=== PATIENT | female | born 1945 | race Caucasian/White ===

== ENCOUNTER 2018-09-14 11:59 | Emergency (ER) | payer OTHER ==
[2018-09-14] MEDS ORDERED: IOHEXOL 240 MG/ML 50ML VIAL. ONE (12:27)
[2018-09-14] MEDS ORDERED: ONDANSETRON PF 4 MG/2 ML VIAL. IV ONE (12:30)
[2018-09-14] MEDS ORDERED: IV NORMAL SALINE 500ML 500 ML IV ONE (12:30)
[2018-09-14] MEDS ORDERED: IOHEXOL 300 MG/ML 75 ML VIAL. IV ONE (12:30)
[2018-09-14 12:36] LABS: BASO # 0.1 x10^3/uL (0.0-0.2); BASO % 1 % (0-3); EOS # 0.1 x10^3/uL (0.0-0.7); EOS % 1 % (0-3); HEMATOCRIT 42.6 % (36.0-47.0); HEMOGLOBIN 14.6 g/dL (12.0-15.5); LYMPH # 2.6 x10^3/uL (1.0-4.8); LYMPH % 23 % (24-48); MEAN CORPUSCULAR HEMOGLOBIN 33 pg (25-35); MEAN CORPUSCULAR HGB CONC 34 g/dL (31-37); MEAN CORPUSCULAR VOLUME 95 fL (79-100); MONO # 1.4 x10^3/uL (0.0-1.1); MONO % 13 % (0-9); NEUT % 62 % (31-73); PLATELET COUNT 545 x10^3/uL (140-400); RED CELL DISTRIBUTION WIDTH 13.1 % (11.5-14.5); WHITE BLOOD COUNT 11.3 x10^3/uL (4.0-11.0)
[2018-09-14 12:48] LABS: ALBUMIN 3.7 g/dL (3.4-5.0); ALBUMIN/GLOBULIN RATIO 1.1 (1.0-1.7); CALCIUM 9.3 mg/dL (8.5-10.1); CREATININE 1.3 mg/dL (0.6-1.0); GFR 40.4; POTASSIUM 3.9 mmol/L (3.5-5.1); TOTAL BILIRUBIN 0.4 mg/dL (0.2-1.0); TOTAL PROTEIN 7.2 g/dL (6.4-8.2)
[2018-09-14 13:47] VITALS: BP 139/75
--- NOTE | 2018-09-14 14:04 | RAD ---
PQRS Compliance statement: One or more of the following individualized dose reduction techniques were utilized for this examination: 1. Automated exposure control. 2. Adjustment of the mA and/or kV according to patient size. 3. Use of iterative reconstruction technique. 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 COMPARISON: None FINDINGS: Visualized heart is normal in size. No pericardial or effusion. Clear lung bases. Liver, gallbladder, pancreas, adrenals within normal limits. No nephrolithiasis or hydronephrosis. No enlarged retroperitoneal or pelvic adenopathy. 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 Significant atherosclerotic disease is seen of the infrarenal aorta and bilateral iliac arteries with approximately 70% narrowing of the bilateral common, external/internal iliac arteries. No free pelvic fluid or ascites. Uterus is present with multiple calcified fibroids. Urinary bladder is within normal limits. No enlarged retroperitoneal or pelvic adenopathy. No bowel obstruction. No pneumoperitoneum or pneumatosis intestinalis. Moderate dextroscoliosis of the lumbar spine. No suspicious bony lesion. IMPRESSION: 1. Advanced atherosclerotic disease of the infrarenal aorta and bilateral iliac arteries. 2. No bowel obstruction. 3. Severe diffuse thickening of the stomach wall may be secondary to suboptimal distention or gastritis. Clinically correlate. Electronically signed by: Renan Anaya DO (09/14/2018 2:01 PM) [id number]
--- NOTE | 2018-09-14 14:38 | PHYS DOC ---
Past History Past Medical History: Other Past Surgical History: Other Alcohol Use: None Drug Use: None Adult General Chief Complaint Chief Complaint: ABDOMINAL PAIN [facility] HPI Patient is a 73 year old female with history of colitis sent from her primary care physician office in [place] because of abdominal pain and possible ascites. Patient complaining of constant left sided abdominal pain as an aching pain with radiation to her left flank that getting worse with movement and eating. She denies nausea and vomiting, fever and chills, chest pain and shortness of breath. Patient states she usually has bowel movements that getting laxity but did not have any bowel movement for the last 6 days except for one bowel movement after taking magnesium. Patient complaining of intermittent distention of abdomen for the last 1 week. Patient states she taking diuretic and has urinary frequency without dysuria. Review of Systems Review of Systems Constitutional: Denies fever or chills [] Eyes: Denies change in visual acuity, redness, or eye pain [] HENT: Denies nasal congestion or sore throat [] Respiratory: Denies cough or shortness of breath [] Cardiovascular: No additional information not addressed in HPI [] GI: Reports constipation and abdominal pain, denies nausea, vomiting, bloody stools or diarrhea [] : Denies dysuria or hematuria [] Musculoskeletal: Denies back pain or joint pain [] Integument: Denies rash or skin lesions [] Neurologic: Denies headache, focal weakness or sensory changes [] Endocrine: Denies polyuria or polydipsia [] All other systems were reviewed and found to be within normal limits, except as documented in this note. Current Medications Current Medications Current Medications Medications (Trade) Dose Ordered Sig/[facility] Start Time Stop Time Status Last Admin Dose Admin Fentanyl Citrate (Fentanyl 2ml Vial) 50 mcg 1X ONCE 09/14/18 13:45 09/14/18 13:46 DC Iohexol (Omnipaque 240 Mg/ml) 50 ml STK-MED ONCE 09/14/18 12:27 09/14/18 12:28 DC Iohexol (Omnipaque 300 Mg/ml) 75 ml 1X ONCE 09/14/18 12:30 09/14/18 12:31 DC 09/14/18 13:32 75 ML Ondansetron HCl (Zofran) 4 mg 1X ONCE 09/14/18 12:30 09/14/18 12:31 DC 09/14/18 12:30 4 MG Sodium Chloride 500 ml @ 0 mls/hr 1X ONCE 09/14/18 12:30 09/14/18 12:31 DC Allergies Allergies Allergies Coded Allergies Type Severity Reaction Last Updated Verified No Known Drug Allergies 09/14/18 No Physical Exam Physical Exam Constitutional: Well developed, well nourished, mild distress, non-toxic appearance. [] HENT: Normocephalic, atraumatic, oropharynx moist, no oral exudates, nose normal. [] Eyes: PERRLA, EOMI, conjunctiva normal, no discharge. [] Neck: Normal range of motion, no tenderness, supple, no stridor. [] Cardiovascular:Heart rate regular rhythm, no murmur [] Lungs & Thorax: Bilateral breath sounds clear to auscultation [] Abdomen: Bowel sounds normal, soft, mildly distention with gas, no tenderness, no masses, no pulsatile masses. [] Skin: Warm, dry, no erythema, no rash. [] Back: No tenderness, no CVA tenderness. [] Extremities: No tenderness, no cyanosis, no clubbing, ROM intact, no edema. [] Neurologic: Alert and oriented X 3, normal motor function, normal sensory function, no focal deficits noted. [] Psychologic: Affect normal, judgement normal, mood normal. [] Current Patient Data Vital Signs Vital Signs Date Time Temp Pulse Resp B/P (MAP) Pulse Ox O2 Delivery O2 Flow Rate FiO2 09/14/18 13:47 85 16 139/75 (96) 96 09/14/18 12:30 98.8 Room Air Lab Results Laboratory Tests Test 09/14/18 12:20 White Blood Count 11.3 x10^3/uL (4.0-11.0) H Red Blood Count 4.50 x10^6/uL (3.50-5.40) Hemoglobin 14.6 g/dL (12.0-15.5) Hematocrit 42.6 % (36.0-47.0) Mean Corpuscular Volume 95 fL (79-100) Mean Corpuscular Hemoglobin 33 pg (25-35) Mean Corpuscular Hemoglobin Concent 34 g/dL (31-37) Red Cell Distribution Width 13.1 % (11.5-14.5) Platelet Count 545 x10^3/uL (140-400) H Neutrophils (%) (Auto) 62 % (31-73) Lymphocytes (%) (Auto) 23 % (24-48) L Monocytes (%) (Auto) 13 % (0-9) H Eosinophils (%) (Auto) 1 % (0-3) Basophils (%) (Auto) 1 % (0-3) Neutrophils # (Auto) 7.0 x10^3uL (1.8-7.7) Lymphocytes # (Auto) 2.6 x10^3/uL (1.0-4.8) Monocytes # (Auto) 1.4 x10^3/uL (0.0-1.1) H Eosinophils # (Auto) 0.1 x10^3/uL (0.0-0.7) Basophils # (Auto) 0.1 x10^3/uL (0.0-0.2) Sodium Level 131 mmol/L (136-145) L Potassium Level 3.9 mmol/L (3.5-5.1) Chloride Level 92 mmol/L (98-107) L Carbon Dioxide Level 33 mmol/L (21-32) H Anion Gap 6 (6-14) Blood Urea Nitrogen 24 mg/dL (7-20) H Creatinine 1.3 mg/dL (0.6-1.0) H Estimated GFR (Cockcroft-Gault) 40.4 BUN/Creatinine Ratio 18 (6-20) Glucose Level 108 mg/dL (70-99) H Lactic Acid Level 1.0 mmol/L (0.4-2.0) Calcium Level 9.3 mg/dL (8.5-10.1) Total Bilirubin 0.4 mg/dL (0.2-1.0) Aspartate Amino Transferase (AST) 24 U/L (15-37) Alanine Aminotransferase (ALT) 30 U/L (14-59) Alkaline Phosphatase 85 U/L (46-116) Troponin I Quantitative < 0.017 ng/mL (0-0.055) Total Protein 7.2 g/dL (6.4-8.2) Albumin 3.7 g/dL (3.4-5.0) Albumin/Globulin Ratio 1.1 (1.0-1.7) Lipase 184 U/L (73-393) EKG EKG EKG interpreted by me. EKG at 1229 showed normal sinus rhythm at rate of 80, no acute ST and T-wave abnormalities. Radiology/Procedures Radiology/[place] [address] IMAGING REPORT Signed PATIENT: MAYO NICK ACCOUNT: [id number] : 1945 LOCATION: ER AGE: 73 SEX: F EXAM STATUS: REG ER ORD. PHYSICIAN: JAYMIE OTOOLE MD REASON: LUQ abdominal pain PROCEDURE: CT ABD PELV W/ORAL&IV CONTRAST PQRS Compliance statement: One or more of the following individualized dose reduction techniques were utilized for this examination: 1. Automated exposure control. 2. Adjustment of the mA and/or kV according to patient size. 3. Use of iterative reconstruction technique. 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 COMPARISON: None FINDINGS: Visualized heart is normal in size. No pericardial or effusion. Clear lung bases. Liver, gallbladder, pancreas, adrenals within normal limits. No nephrolithiasis or hydronephrosis. No enlarged retroperitoneal or pelvic adenopathy. 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 Significant atherosclerotic disease is seen of the infrarenal aorta and bilateral iliac arteries with approximately 70% narrowing of the bilateral common, external/internal iliac arteries. No free pelvic fluid or ascites. Uterus is present with multiple calcified fibroids. Urinary bladder is within normal limits. No enlarged retroperitoneal or pelvic adenopathy. No bowel obstruction. No pneumoperitoneum or pneumatosis intestinalis. Moderate dextroscoliosis of the lumbar spine. No suspicious bony lesion. IMPRESSION: 1. Advanced atherosclerotic disease of the infrarenal aorta and bilateral iliac arteries. 2. No bowel obstruction. 3. Severe diffuse thickening of the stomach wall may be secondary to suboptimal distention or gastritis. Clinically correlate. Electronically signed by: Renan Anaya DO (09/14/2018 2:01 PM) [id number] DICTATED AND SIGNED BY: RENAN ANAYA DO DATE: 09/14/18 1353 CC: JAYMEI OTOOLE MD; PCP,NO ~ Course & Med Decision Making Course & Med Decision Making Pertinent Labs and Imaging studies reviewed. (See chart for details) Evaluation of patient in ER showed 73-year-old female patient sent from her primary care physician office for abdominal pain and possible ascites. Patient had constipation and marked is patient of abdomen with gas. Patient had unremarkable labs except for mild elevation of BUN/creatinine related to taking Lasix. Patient also had sodium of 131 and treated with IV fluid in ER. Patient had CT of abdomen and pelvis without ascites. The CT showed gastric wall thickening with consideration of gastritis and also more than 70% stenosis of common iliac arteries. Patient had palpebra and lower extremity pulses but complaining of exertional pain in bilateral lower extremities. I talked to patient primary care provider Duke Snyder and informed him about test results and abnormal CT regarding arterial stenosis and gastric wall thickening and needs more evaluation and possible referral to vascular surgeon. Patient instructed to follow with primary care provider and return to emergency room if not getting better. Dragon Disclaimer Dragon Disclaimer This electronic medical record was generated, in whole or in part, using a voice recognition dictation system. Departure Departure: Impression: Primary Impression: Constipation Additional Impressions: Abdominal pain Gastritis Abnormal CT of the abdomen Renal insufficiency Hyponatremia Disposition: 01 HOME, SELF-CARE Condition: IMPROVED Referrals: PCP,SKIP (PCP) Patient Instructions: Constipation, Adult, Gastritis, Adult Additional Instructions: Drink plenty of liquids Follow-up with your primary care physician in 3-5 days Return to ER if not getting better Scripts Magnesium Citrate (MAGNESIUM CITRATE) 296 Ml Solution 296 ML PO ONCE for constipation, #296 ML Prov: JAYMIE OTOOLE MD 09/14/18 Problem Qualifiers JAYMIE OTOOLE MD Sep 14, 2018 14:38
[2018-09-14 14:43] LABS: BACTERIA,URINE 0 /HPF (0-FEW); BILIRUBIN,URINE NEG (NEG); CLARITY,URINE CLEAR; COLOR,URINE YELLOW; GLUCOSE,URINE NEG (NEG); NITRITE,URINE NEG (NEG); RBC,URINE RARE /HPF (0-2); SQUAMOUS EPITHELIAL CELL,UR FEW /LPF; UROBILINOGEN,URINE 0.2 mg/dL (0.2 mg/dL); WBC,URINE RARE /HPF (0-4)
[2018-09-14] MEDS ORDERED: MAGN296S9 PO (14:48)
--- NOTE | 2018-09-15 07:26 | EKG ---
[address] [address] Test Date: 2018-09-14 Test Time: 12:29:30 Pat Name: MAYO NICK Department: Room: Gender: F Student Advisor: : 1945 Requested By: JAYMIE OTOOLE Order Number: [id number] Reading MD: Chucky Lemons MD Measurements Intervals [place] Rate: 80 P: 62 ID: [id number] QRS: 63 QRSD: 80 T: 57 QT: 342 QTc: 398 Interpretive Statements SINUS RHYTHM Electronically Signed On 09-15-2018 10:44:41 [employer] by Chucky Lemons MD
== END 2018-09-14 15:06 | disposition home or self-care (01) ==
LOC: ER 11:59
DX: K59.00 Constipation, unspecified (principal); K29.70 Gastritis, unspecified, without bleeding; R93.5 Abnormal findings on diagnostic imaging of other abdominal regions, including retroperitoneum; N28.9 Disorder of kidney and ureter, unspecified; E87.1 Hypo-osmolality and hyponatremia
CPT/HCPCS: 36415; 74177; 80053; 81001; 83605; 83690; 84484; 85025; 87086; 93005; 96361; 96374; 99285; J2405; J7040; Q9967